=== PATIENT | male | born 1955 | race Native Hawaiian/Other Pacific Islander ===

== ENCOUNTER 2020-03-25 14:31 | Outpatient (CLI) | payer OTHER | END 2020-03-25 19:27 | disposition home or self-care (01) | LOC: US 14:31 | PROVIDERS: ATTEND Internal Medicine Cardiovascular Disease | DX: R09.89 Other specified symptoms and signs involving the circulatory and respiratory systems (principal); I73.9 Peripheral vascular disease, unspecified; R07.89 Other chest pain ==

== ENCOUNTER 2020-03-28 07:43 | Outpatient (CLI) | payer OTHER ==
[~2020-03-28] VITALS: Ht 154.9 cm; Wt 72.6 kg
== END 2020-03-28 20:36 | disposition home or self-care (01) ==
LOC: NM 07:43
PROVIDERS: ATTEND Internal Medicine Cardiovascular Disease
DX: R09.89 Other specified symptoms and signs involving the circulatory and respiratory systems (principal); I73.9 Peripheral vascular disease, unspecified; R07.89 Other chest pain
CPT/HCPCS: A9500; J2785

== ENCOUNTER 2020-07-12 09:50 | Outpatient (CLI) | payer OTHER | END 2020-07-12 21:49 | disposition home or self-care (01) | LOC: RAD 09:50 | PROVIDERS: ATTEND Nurse Practitioner | DX: M79.675 Pain in left toe(s) (principal); M79.89 Other specified soft tissue disorders ==

== ENCOUNTER 2021-01-29 11:14 | Outpatient (CLI) | payer OTHER | END 2021-01-29 20:17 | disposition home or self-care (01) | LOC: LABW 11:14 | PROVIDERS: ATTEND Registered Nurse | DX: Z79.01 Long term (current) use of anticoagulants (principal) | CPT/HCPCS: 36415; 85610 ==

== ENCOUNTER 2021-11-19 13:23 | Outpatient (CLI) | payer OTHER | END 2021-11-19 18:53 | disposition home or self-care (01) | LOC: US 13:23 | PROVIDERS: ATTEND Internal Medicine Cardiovascular Disease | DX: I10 Essential (primary) hypertension (principal); R09.89 Other specified symptoms and signs involving the circulatory and respiratory systems; I20.0 Unstable angina; I73.9 Peripheral vascular disease, unspecified ==

== ENCOUNTER 2021-11-26 08:25 | Outpatient (CLI) | payer OTHER ==
[~2021-11-26] VITALS: Ht 154.9 cm; Wt 70.3 kg
== END 2021-11-26 19:17 | disposition home or self-care (01) ==
LOC: NM 08:25
PROVIDERS: ATTEND Internal Medicine Cardiovascular Disease
DX: I10 Essential (primary) hypertension (principal); R09.89 Other specified symptoms and signs involving the circulatory and respiratory systems; I20.0 Unstable angina; I73.9 Peripheral vascular disease, unspecified
CPT/HCPCS: A9500; J2785